=== PATIENT | male | born 1965 | race Hispanic/Latino ===

== ENCOUNTER → 2018-12-06 | Day surgery (SDC) | payer OTHER ==
[~2018-12-06] MED LIST: AMLODIPINE BESYL5 MG PO; LIDOCAINE HCL 2% LOCAL INJ 5 ML SDV VIAL INJ ONE; LISINOPRIL-HCT1 EACH PO; METFORMIN HCL500 MG PO; MIDAZOLAM HCL 2 MG/2 ML VIAL ONE; PRAVASTATIN SOD20 MG PO; PROPOFOL IV EMULSION 10 MG/ML 50 ML VIAL ONE
--- OUTSIDE RECORDS SUMMARY | 2018-12-06 05:29 | XMS REPORT ---
Author Author [facility] Address Unknown Phone Unavailable Care Team Providers Care Mechanotherapist Name Role Phone Unavailable Unavailable Problems This patient has no known problems. Allergies, Adverse Reactions, Alerts This patient has no known allergies or adverse reactions. Medications This patient has no known medications. Encounters Start Date/Time End Date/Time Encounter Type Admission Type Attending [facility] Care Facility Care Department Encounter ID 2018-08-14 03:47:13 2018-08-14 03:47:13 Emergency [facility] [id number]
--- OUTSIDE RECORDS SUMMARY | 2018-12-06 05:29 | XMS REPORT | Clinical Summary ---
Author Author [facility] Organization [facility] Address Unknown Phone Unavailable Care Team Providers Care Delinquent Account Clerk Name Role Phone PCP Unavailable Allergies No Known Allergies Medications End Date Status Medication Sig Dispensed Refills Start Date Active hydrochlorothiazide Take 1 tablet 30 tablet 1 (HYDRODIURIL) 25 mg by mouth 6 tabletIndications: daily For Essential hypertension blood with goal blood pressure pressure. less than 130/80 Active ofloxacin (OCUFLOX) 0.3 % Apply 10 5 mL 0 ophthalmic drops to 6 solutionIndications: RIGHT EAR Acute otitis externa of every day for right ear, unspecified 7 days.. type Active terbinafine HCl (LAMISIL) Take 1 tablet 42 tablet 0 250 mg tabletIndications: by mouth 6 Onychomycosis daily Icelandic label. Active terbinafine HCl (LAMISIL) Take 1 tablet 42 tablet 0 250 mg tabletIndications: by mouth 7 Onychomycosis daily Icelandic label. Active ibuprofen (MOTRIN) 800 mg Take 1 tablet 90 tablet 2 tabletIndications: Back by mouth 7 pain, unspecified back every 8 hours location, unspecified as needed for back pain laterality, pain. Take unspecified chronicity with food. Active clotrimazole (LOTRIMIN) 1 Apply 1-2 30 mL 0 % external drops to 7 solutionIndications: affected Onychomycosis nails 2 times a day. Use a nail file to keep nails thin. Treatment may take up to 1 year. Active levothyroxine (SYNTHROID) Take 1 tablet 30 tablet 3 25 mcg tabletIndications: by mouth 7 Elevated TSH daily In morning prior to meals. Icelandic label. Active atorvastatin (LIPITOR) 10 Take 1 tablet 30 tablet 3 10/07/201 mg tabletIndications: by mouth at 7 High triglycerides bedtime nightly Icelandic label. Active Problems Problem Noted Date Obstructive sleep apnea 10/07/2016 Tear of peroneal tendon 04/28/2016 Prediabetes 12/09/2015 Elevated TSH 12/09/2015 Elevated triglycerides with high cholesterol 12/09/2015 Obesity, morbid, BMI 50 or higher 12/09/2015 Abdominal pain 01/26/2015 Rectal pain 01/26/2015 Rectal bleeding Encounters Care Team Description Date Type Specialty Chucky Lopez MD Rectal bleeding (Primary Dx); Obstructive sleep apnea; Obesity, morbid, BMI 50 or higher 08/14/2018 Emergency Emergency Medicine 08/13/2018 Travel after 12/05/2017 Immunizations Name Administration Dates Next Due Influenza Vaccine 04/27/2016 Tdap Tetanus, diphtheria, 11/10/2015 acellular pertussis Vaccine Family History Medical History Relation Name Comments Diabetes Father Diabetes Mother Relation Name Status Comments Brother Alive Father Alive Mother Alive Sister Alive Social History Date Tobacco Use Types Packs/Day Years Used Never Smoker Smokeless Tobacco: Never Used Drinks/Week oz/Week Comments Alcohol Use 6 Cans of beer 3.6 Yes Sex Assigned at Date Recorded Not on file Industry Job Start Date Occupation Not on file Not on file Not on file Travel End Travel History Travel Start No recent travel history available. Last Filed Vital Signs Reading Time Taken Comments Vital Sign 171/108 08/14/2018 3:44 AM PARTS ADMINISTRATOR Blood Pressure 88 08/14/2018 3:44 AM PARTS ADMINISTRATOR Pulse 36.9 C (98.5 F) 08/14/2018 3:44 AM PARTS ADMINISTRATOR Temperature 18 08/14/2018 3:44 AM PARTS ADMINISTRATOR Respiratory Rate 100% 08/14/2018 3:44 AM PARTS ADMINISTRATOR Oxygen Saturation - - Inhaled Oxygen Concentration - - Weight - - Height - - Body Mass Index Plan of Treatment Health Maintenance Due Date Last Done Comments Colorectal Cancer Scrn 2017 01/19/2016 Annual (FIT/FOBT) Age 50 to 75 IMM Influenza Seasonal 04/09/2019 Oct to September (>/=19 yrs) Procedures Comments Procedure Name Priority Date/Time Associated Diagnosis 12 LEAD EKG Routine 08/14/2018 4:51 AM PARTS ADMINISTRATOR BMP POC Routine 08/13/2018 9:33 PM PARTS ADMINISTRATOR HIV-1/HIV-2 ROUTINE STAT 08/13/2018 SCREENING 9:16 PM PARTS ADMINISTRATOR LIPASE STAT 08/13/2018 9:16 PM PARTS ADMINISTRATOR LIVER PROFILE STAT 08/13/2018 9:16 PM PARTS ADMINISTRATOR CBC/DIFF STAT 08/13/2018 9:16 PM PARTS ADMINISTRATOR after 12/05/2017 Results * 12 LEAD EKG (08/14/2018 4:51 AM PARTS ADMINISTRATOR) 12 LEAD EKG FOR [facility] Test Date:2018-08-14 Pat Name: ELENA COPPOLA Department: [id number] Room: Gender: M Rd Lab Technician: [id number] :1965-1 08-23 Requested By: CHUCKY Bowden Order Number: [id number] Reading MD: [email or web address] lowe Measurements Intervals [place] Rate: 86 P:36 [place]: 203 QRS: 62 QRSD: 106 T: 70 QT: 375 QTc:449 Interpretive Statements SINUS RHYTHM Reviewed by Electronically Signed On 08-14-2018 5:30:21 PARTS ADMINISTRATOR by [email or web address] lowe Specimen Performing Organization Address City/State/Zipcode Phone Number SMS * BMP POC (08/13/2018 9:33 PM PARTS ADMINISTRATOR) CO2 POC 23 21 - 32 mmol/L [facility] 1 Chloride POC 102 98 - 107 mmol/L [facility] 1 Potassium POC 4.7 3.50 - 5.10 mmol/L [facility] 1 Sodium POC 134 (L) 136 - 145 mmol/L [facility] 1 Glucose POC 176 (H) 74 - 106 mg/dL [facility] 1 Urea Nitrogen 22 (H) 7 - 18 mg/dL [facility] POC 1 Creatinine POC 0.9 0.6 - 1.3 mg/dL [facility] 1 Calcium Ionized 0.97 (L) 1.15 - 1.29 mmol/L [facility] POC 1 Hemoglobin POC 16.7 14.0 - 18.0 g/dL [facility] 1 Hematocrit POC 49.0 40.0 - 54.0 % [facility] 1 GFR, Estimated >60 mL/min/1.73 m2 [facility] 1 GFR, Estim, >60 mL/min/1.73 m2 [facility] Afr-Am 1 Specimen Performing Organization Address [facility] [place] Phone Number MIS[facility] * HIV-1/HIV-2 ROUTINE SCREENING (08/13/2018 9:16 PM PARTS ADMINISTRATOR) HIV-1/HIV-2 Negative NEG [facility] 2 Specimen Performing Organization Address [facility] [place] Phone Number MISYS [facility] * LIVER PROFILE (08/13/2018 9:16 PM PARTS ADMINISTRATOR) T Protein 7.1 6.0 - 8.3 g/dL [facility] 1 Albumin 4.0 (L) 4.2 - 5.5 g/dL [facility] 1 T Bilirubin 0.4 0.2 - 1.2 mg/dL [facility] 1 Alk Phos 75 34 - 104 U/L [facility] 1 AST 26 13 - 39 U/L [facility] 1 ALT 37 7 - 52 U/L [facility] 1 D Bilirubin 0.1 0.0 - 0.2 mg/dL [facility] 1 Specimen Blood Performing Organization Address [facility] [place] Phone Number MISYS [facility] 1 * LIPASE (08/13/2018 9:16 PM PARTS ADMINISTRATOR) Lipase 30 11 - 82 U/L [facility] 1 Specimen Blood Performing Organization Address [facility] [place] Phone Number MISYS [facility] 1 * CBC/DIFF (08/13/2018 9:16 PM PARTS ADMINISTRATOR) WBC 9.3 4.5 - 12.0 K/uL [facility] 2 RBC 5.07 4.60 - 6.20 M/uL [facility] 2 Hemoglobin 14.4 14.0 - 18.0 g/dL [facility] 2 Hematocrit 45.5 40.0 - 54.0 % [facility] 2 MCV 90 82 - 92 fL [facility] 2 MCH 28.4 27.0 - 31.0 pg [facility] 2 MCHC 31.6 (L) 32.0 - 36.0 g/dL [facility] 2 RDW 43.2 35.1 - 43.9 fL [facility] 2 Platelet 351 150 - 400 K/uL [facility] 2 Mean Platelet 9.6 9.4 - 12.4 fL [facility] Volume 2 Percent NRBC 0.0 [facility] 2 Absolute NRBC 0.00 [facility] 2 Neutrophil 46.7 34.0 - 67.9 % [facility] 2 Lymphocyte 41.3 21.8 - 50.0 % [facility] 2 Monocyte 9.0 5.3 - 12.0 % [facility] 2 Eosinophil 2.3 0.8 - 5.0 % BT [facility] 2 Basophil 0.4 0.2 - 1.2 % [facility] 2 Pct Immat Gran 0.3 0.0 - 0.5 BT [facility] 2 Neutrophil, Abs 4.33 1.78 - 5.36 K/uL [facility] 2 Lymphocyte, Abs 3.84 (H) 1.32 - 3.57 K/uL [facility] 2 Monocyte, Abs 0.84 (H) 0.30 - 0.82 K/uL [facility] 2 Eosinophil, Abs 0.21 0.04 - 0.54 K/uL [facility] 2 Basophil, Abs 0.04 0.01 - 0.08 K/uL [facility] 2 Absol Immat 0.03 0.00 - 0.03 K/uL [facility] Gran 2 Specimen Blood Performing Organization Address City/State/Zipcode Phone Number MISYS [facility] 2 after 12/05/2017 Insurance Type Payer Benefit Subscriber ID Effective Phone Address Plan / Dates Group [facility] SELF-PAY SELF-PAY xxxxxxxxx 2018-P [id number] [place] [address]
[2018-12-06 09:10] VITALS: BP 138/82
== END | disposition home or self-care (01) ==
LOC: OR 05:23
PROVIDERS: ATTEND Internal Medicine Gastroenterology
DX: Z12.11 Encounter for screening for malignant neoplasm of colon (principal); K57.30 Diverticulosis of large intestine without perforation or abscess without bleeding; K64.8 Other hemorrhoids; Z71.3 Dietary counseling and surveillance; I10 Essential (primary) hypertension; E78.5 Hyperlipidemia, unspecified; E11.9 Type 2 diabetes mellitus without complications; E66.01 Morbid (severe) obesity due to excess calories; Z01.810 Encounter for preprocedural cardiovascular examination; Z79.84 Long term (current) use of oral hypoglycemic drugs; Z68.44 Body mass index [BMI] 60.0-69.9, adult
CPT/HCPCS: 36415; 45378; 82948; 93005; J2001; J2250